=== PATIENT | female | born 1945 | race Caucasian/White ===

== ENCOUNTER 2019-07-16 13:14 | Observation (INO) | payer MEDICARE, OTHER ==
[~2019-07-16] VITALS: Ht 160 cm; Wt 69.0 kg
[2019-07-16 14:03] LABS: BASOPHILS # (AUTO) 0.03 x10^3/uL (0-0.1); BASOPHILS % (AUTO) 1 % (0-1); EOSINOPHILS # (AUTO) 0.15 x10^3/uL (0-0.4); EOSINOPHILS % (AUTO) 2 % (1-7); LYMPHOCYTES # (AUTO) 2.24 x10^3/uL (1-3.4); LYMPHOCYTES % (AUTO) 35 % (22-44); MD NO; MEAN CORPUSCULAR HEMOGLOBIN 33.3 pg (27.0-34.8); MEAN CORPUSCULAR HGB CONC 33.3 g/dL (32.4-35.8); MONOCYTES # (AUTO) 0.95 x10^3/uL (0.2-0.8); MONOCYTES % (AUTO) 15 % (2-9); NEUTROPHILS # (AUTO) 2.97 x10^3/uL (1.8-6.8); NEUTROPHILS % (AUTO) 47 % (42-75); PLATELET COUNT 360 x10^3/uL (130-400); RED BLOOD COUNT 3.65 x10^6/uL (3.82-5.3); RED CELL DISTRIBUTION WIDTH 12.3 % (9.6-15.2)
[2019-07-16 14:13] LABS: ALBUMIN 3.9 g/dL (3.4-5.0); ANION GAP 7 mmol/L (5-15); CHLORIDE 87 mmol/L (98-107); CREATININE 1.14 mg/dL (0.55-1.02)
--- NOTE | 2019-07-16 14:35 | NUR ---
CUSTOMER SERVICE ADMINISTRATOR: PT AMBULATORY WITH STEADY GAIT TO ROOM FROM LOBBY. [place]
[2019-07-16] MEDS ORDERED: SODIUM CHLORIDE 0.9% 1,000 ML IV ONE (15:08)
--- NOTE | 2019-07-16 15:20 | NUR ---
LABS DRAWN IN PIT. IV PLACED, FLUIDS STARTED PER MAR FOR SODIUM CORRECTION. CONNECTED TO MONITORING, VSS. HOSPITALIST TO BEDSIDE FOR ADMIT ASSESSMENT. FAMILY AT BEDSIDE. CALL LIGHT WITHIN REACH
[2019-07-16] MEDS ORDERED: ACETAMINOPHEN 325 MG TABLET PO PRN (15:30)
[2019-07-16] MEDS ORDERED: SODIUM CHLORIDE FLUSH 10ML SYR IVF ONE (15:30)
[2019-07-16] MEDS ORDERED: ONDANSETRON ODT 4 MG PO PRN (15:30)
[2019-07-16] MEDS ORDERED: KETOROLAC 30 MG/1 ML IV PRN (15:30)
[2019-07-16] MEDS ORDERED: hydrALAzine 20 MG/ML, 1ML IVPush PRN (15:30)
[2019-07-16] MEDS ORDERED: ONDANSETRON 2MG/ML, 2ML IVPush PRN (15:30)
[2019-07-16] MEDS ORDERED: morphine SULFATE 10 MG/ML, 1ML IVPush PRN (15:30)
[2019-07-16] MEDS ORDERED: THYROID MED (15:59)
[2019-07-16] MEDS ORDERED: HTN MED (15:59)
[2019-07-16 18:06] VITALS: BP 120/80
[2019-07-16] MEDS ORDERED: TRIA1TAB5 PO (19:09)
[2019-07-16] MEDS ORDERED: METO25TA35 PO (19:09)
[2019-07-16] MEDS ORDERED: AMLO-150 PO (19:11)
[2019-07-16] MEDS ORDERED: LEVO100T5 PO (19:11)
[2019-07-16] MEDS ORDERED: LOSA100T14 PO (19:11)
[2019-07-16 19:19] VITALS: BP 113/70
[2019-07-16] MEDS ORDERED: MELATONIN 5 MG TABLET PO PRN (20:30)
[2019-07-17 02:14] VITALS: BP 105/67
[2019-07-17 03:51] LABS: BASOPHILS # (AUTO) 0.04 x10^3/uL (0-0.1); BASOPHILS % (AUTO) 1 % (0-1); EOSINOPHILS # (AUTO) 0.16 x10^3/uL (0-0.4); EOSINOPHILS % (AUTO) 3 % (1-7); LYMPHOCYTES % (AUTO) 36 % (22-44); MD NO; MEAN CORPUSCULAR HEMOGLOBIN 34.1 pg (27.0-34.8); MEAN CORPUSCULAR HGB CONC 33.4 g/dL (32.4-35.8); MEAN CORPUSCULAR VOLUME 102.2 fL (80-100); MEAN PLATELET VOLUME 7.9 fL (7.4-10.4); MONOCYTES # (AUTO) 0.82 x10^3/uL (0.2-0.8); MONOCYTES % (AUTO) 13 % (2-9); NEUTROPHILS # (AUTO) 3.08 x10^3/uL (1.8-6.8); NEUTROPHILS % (AUTO) 48 % (42-75); PLATELET COUNT 315 x10^3/uL (130-400); RED BLOOD COUNT 3.44 x10^6/uL (3.82-5.3); RED CELL DISTRIBUTION WIDTH 12.1 % (9.6-15.2)
[2019-07-17 04:00] LABS: ANION GAP 7 mmol/L (5-15); CALCIUM 8.6 mg/dL (8.5-10.1); CHLORIDE 94 mmol/L (98-107); CREATININE 0.93 mg/dL (0.55-1.02)
[2019-07-17] MEDS ORDERED: SODIUM CHLORIDE 0.9% 1,000 ML IV SCH (04:30)
[2019-07-17 05:28] VITALS: BP 107/63
[2019-07-17] MEDS ORDERED: LEVOTHYROXINE 100 MCG TABLET PO SCH (06:00)
[2019-07-17] MEDS ORDERED: METOPROLOL TARTRATE 25 MG TABLET PO SCH (06:00)
[2019-07-17 06:10] LABS: SODIUM,URINE RANDOM 58 mmol/L
[2019-07-17 06:41] LABS: OSMOLALITY,URINE 277 mOsm/kg (500-850)
[2019-07-17 07:15] VITALS: BP 106/65
[2019-07-17] MEDS ORDERED: AMLODIPINE 5 MG TABLET PO SCH (09:00)
[2019-07-17] MEDS ORDERED: LOSARTAN 50MG TABLET PO SCH (09:00)
[2019-07-17 12:30] VITALS: BP 105/64
== END 2019-07-17 13:51 | disposition home or self-care (01) ==
LOC: ED 15:22 → EDIP 15:23 → INTOOBSV 15:23 → ED 15:28 → 4EST 16:41 → DCLOUNGE 07-17 13:41
PROVIDERS: ADMIT Hospitalist; ATTEND Internal Medicine
DX: E87.1 Hypo-osmolality and hyponatremia (principal); I12.9 Hypertensive chronic kidney disease with stage 1 through stage 4 chronic kidney disease, or unspecified chronic kidney disease; N18.3 Chronic kidney disease, stage 3 (moderate)
CPT/HCPCS: 36415; 71045; 80048; 82040; 83935; 84295; 84300; 85025; 93005; 99284; G0378; J7030